=== PATIENT | female | born 1975 | race Two or more races ===

== ENCOUNTER 2022-11-17 21:12 | Emergency (ER) | payer BC ==
[~2022-11-17] VITALS: Ht 167.6 cm; Wt 70.3 kg
== END 2022-11-17 22:46 | disposition home or self-care (01) ==
LOC: ER 21:12
DX: M25.562 Pain in left knee (principal)

== ENCOUNTER 2024-11-17 11:43 | Outpatient (CLI) | payer OTHER | END 2024-11-17 12:02 | disposition home or self-care (01) | LOC: RAD 11:43 | PROVIDERS: ATTEND Orthopaedic Surgery Sports Medicine | DX: M76.52 Patellar tendinitis, left knee (principal); M76.51 Patellar tendinitis, right knee; M67.52 Plica syndrome, left knee | CPT/HCPCS: 73721 ==